=== PATIENT | female | born 1975 | race Caucasian/White ===

== ENCOUNTER 2016-11-28 12:28 | Emergency (ER) | payer OTHER ==
[2016-11-28 12:46] VITALS: BP 124/84; PULSE 92; RESP 16; TEMP 98.4; O2SAT 96
--- NOTE | 2016-11-28 12:59 | EDPHY ---
H & P Time Seen by Provider: 11/28/16 12:42 HPI/ROS: CHIEF COMPLAINT: Headache History by patient HISTORY OF PRESENT ILLNESS: 40-year-old woman presents complaining of 4 days of persistent headache and some neck pain since she struck her head on the low [place] she was [place] over the weekend. She woke in the middle night striking her head to get her crying baby and this happened 2 more times. She was never knocked out but 1 time it did knock her to the floor. She has had some mild associated nausea but no vomiting. 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 She says her eyes feel like they have pressure behind them and that she has to strain her eyes. She denies any focal numbness or weakness. She tried to see her primary care physician for this but they referred her here. She has taken Tylenol with minimal relief and ibuprofen with minimal relief. She works full-time as a pre school teacher and has 4 children, including a baby. REVIEW OF SYSTEMS: As in HPI, and all other systems reviewed and are negative Smoking Status: Unknown if ever smoked Physical Exam: General Appearance: Alert, well appearing, comfortable Head: Positive tenderness along left frontal and parietal area with a small palpable contusion. Eyes: Pupils equal and round no pallor or injection. Extraocular movements intact ENT, Mouth: Mucous membranes moist. TMs clear bilaterally with no hemotympanum Neck: Full range of motion without pain, no bony tenderness, very mild trapezius tenderness right greater than left Respiratory: Normal, effort, lungs are clear to auscultation. No wheezes, rales or rhonchi. Back: No CVA tenderness, no bony tenderness Neurological: Awake, alert and oriented x 3, cranial nerves 2-12 intact, no pronator drift, normal gait, walks on heels and toes Skin: Warm and dry, no rashes. Musculoskeletal: No deformities or tenderness. Extremitie:s full range of motion, no edema Psychiatric: Patient has normal affect, there is no agitation. Constitutional: Initial Vital Signs Temperature (C) 36.9 C 11/28/16 12:43 Heart Rate 92 11/28/16 12:43 Respiratory Rate 16 11/28/16 12:43 Blood Pressure 124/84 H 11/28/16 12:43 O2 Sat (%) 96 11/28/16 12:43 O2 Delivery Mode Room Air Allergies/Adverse Reactions: No Known Allergies Allergy (Unverified 11/28/16 12:46) Home Medications: Medication Instructions Recorded NK [No Known Home Meds] 11/28/16 MDM/Departure - [facility] ED Course/Re-evaluation: 40-year-old woman presents with headache after striking her head 4 days ago without loss of consciousness. Here patient has a normal neurologic exam. There is no indication for neuro imaging at this time. I discussed the patient she was given reassurance about her symptoms as related to the trauma. We discussed conservative measures such as Tylenol, ibuprofen and ice. I recommended she take a day off work to rest. I am recommending follow up with her primary care physician or a concussion specialist if her symptoms become persistent. - Depart Disposition: Home, Routine, Self-Care Clinical Impression: Head injury Qualifiers: Encounter type: initial encounter Qualified Code(s): S09.90XA - Unspecified injury of head, initial encounter Condition: Good Instructions: Concussion (ED) Additional Instructions: You were seen by Dr. Lexy Mathur today. You have a completely normal neurologic exam and there is no evidence of serious head injury. Your headaches and neck pain are related to her head trauma. You may take ibuprofen 400 mg 4 times a day with acetaminophen (Tylenol ) 1000 mg 4 times a day if needed. You may take a day off work tomorrow to rest. Please follow up with your primary care physician or a concussion specialist if your symptoms persist. Return for any worsening or new concerns. Referrals: Itzel Nielsen DO [Primary Care Provider] - As per Instructions
== END 2016-11-28 13:10 | disposition home or self-care (01) ==
LOC: CED 12:28
DX: S09.90XA Unspecified injury of head, initial encounter (principal); W22.8XXA Striking against or struck by other objects, initial encounter